=== PATIENT | female | born 1955 | race Caucasian/White ===

== ENCOUNTER 2016-08-28 06:17 | Inpatient (IN) ==
--- NOTE | 2016-08-21 10:31 | EKG Report ---
Test Performed on : 08/21/2016 10:27:13 AM Test Reason : pat Blood Pressure : / mmHG Vent. Rate : 060 BPM Atrial Rate : 060 BPM P-R Int : 112 ms QRS Dur : 088 ms QT Int : 390 ms P-R-T Axes : 042 -01 055 degrees QTc Int : 390 ms Normal sinus rhythm. Nonspecific ST abnormality Abnormal ECG When compared with ECG of 22-JUL-2009 08:24, No significant change was found Confirmed by Dwayne DAWSON, Tod Rand ([id number]) on 08/21/2016 6:26:23 PM
[2016-08-21 10:56] LABS: MANUAL DIFF NEEDED? NO; URINE MICRO REVIEW NEEDED? NO; URINE SOURCE CLEAN CATCH
[2016-08-21 10:59] LABS: BASO% 0.4 % (0.0-0.8); EOS# 0.18 X1000 (0.0-0.7); EOS% 2.6 % (0.0-10.0); HEMATOCRIT 41.5 % (37.0-47.0); HEMOGLOBIN 14.2 g/dL (12.0-16.0); LYMPH# 2.12 X1000 (1.2-3.4); LYMPH% 30.4 % (20.5-51.1); MCH 30.2 PG (27-31); MCHC 34.2 g/dL (33-37); MCV 88.3 FL (81-99); MONO# 0.83 X1000 (0.11-0.59); MONO% 11.9 % (1.7-9.3); MPV 12.2 FL (7.4-10.4); NEUT% 54.7 % (42.2-75.2); PLT 181 X1000 (130-400)
[2016-08-21 11:01] LABS: BILIRUBIN URINE NEGATIVE (NEGATIVE); BLOOD URINE NEGATIVE (NEGATIVE); COLOR YELLOW; GLUCOSE URINE NEGATIVE (NEGATIVE); LEUKOCYTES URINE LARGE (NEGATIVE); NITRITE URINE NEGATIVE (NEGATIVE); PH URINE 5.5; PROTEIN URINE NEGATIVE (NEGATIVE); SP GRAVITY URINE 1.006; TURBIDITY URINE HAZY (CLEAR); UROBILINOGEN URINE NORMAL (NORMAL)
[2016-08-21 11:02] LABS: UR EPITHELIAL CELLS >10 /HPF (<10); URINE BACTERIA 2+ /HPF; URINE RBC <10 /HPF (<10)
[2016-08-21 11:09] LABS: INR 0.95; PROTIME 9.9 Seconds (9.2-11.7); PTT 23.8 Seconds (22.0-36.0)
[2016-08-21 11:46] LABS: AGAP 12; BUN 12 mg/dL (8-22); CALCIUM 9.3 mg/dL (8.8-10.2); CHLORIDE 99 mmol/L (98-107); COSMO 279; POTASSIUM 4.3 mmol/L (3.5-5.1); SODIUM 140 mmol/L (136-145); TCO2 29 mmol/L (25-35)
[2016-08-28] MEDS ORDERED: LYRICA ONE (08:04)
[2016-08-28] MEDS ORDERED: PEPCID ONE (08:04)
[2016-08-28] MEDS ORDERED: COLACE ONE (08:04)
[2016-08-28] MEDS ORDERED: REGLAN ONE (08:04)
[2016-08-28] MEDS ORDERED: LR 1,000 ML ONE (08:05)
[2016-08-28] MEDS ORDERED: CELEBREX ONE (08:05)
[2016-08-28] MEDS ORDERED: KEFZOL 2 GM/D5W 2 GM/50 ML IVPB ONE (08:05)
[2016-08-28] MEDS ORDERED: MARCAINE 0.25% PF/EPI 1:200,000 ONE (08:39)
[2016-08-28] MEDS ORDERED: TORADOL ONE (08:39)
[2016-08-28] MEDS ORDERED: VANCOMYCIN ONE (08:39)
[2016-08-28] MEDS ORDERED: CYKLOKAPRON 1,000 MG/NS 1,000 MG/100 ML IVPB ONE ×2 (08:40→08:48)
[2016-08-28] MEDS ORDERED: EXPAREL 1.3% ONE (08:40)
[2016-08-28] MEDS ORDERED: SODIUM CHLORIDE 0.9% ONE (08:40)
[2016-08-28] MEDS ORDERED: NEOSPORIN G.U. IRRIGANT ONE (08:48)
[2016-08-28] MEDS ORDERED: LASIX PO SCH (09:00)
[2016-08-28] MEDS ORDERED: KLOR-CON PO SCH (09:00)
[2016-08-28] MEDS ORDERED: CENTRUM SILVER PO SCH (09:00)
[2016-08-28] MEDS ORDERED: VITAMIN B-12 PO SCH (09:00)
[2016-08-28] MEDS ORDERED: COLCRYS PO SCH (09:00)
[2016-08-28] MEDS ORDERED: FISH OIL CONCENTRATE PO SCH (09:00)
[2016-08-28] MEDS ORDERED: ESTRACE PO SCH (09:00)
[2016-08-28 10:09] LABS: URINE MICRO REVIEW NEEDED? NO; URINE SOURCE CATH
[2016-08-28 10:20] LABS: BILIRUBIN URINE NEGATIVE (NEGATIVE); BLOOD URINE NEGATIVE (NEGATIVE); COLOR YELLOW; GLUCOSE URINE NEGATIVE (NEGATIVE); LEUKOCYTES URINE NEGATIVE (NEGATIVE); NITRITE URINE NEGATIVE (NEGATIVE); PROTEIN URINE NEGATIVE (NEGATIVE); SP GRAVITY URINE 1.023; TURBIDITY URINE CLEAR (CLEAR); UROBILINOGEN URINE NORMAL (NORMAL)
[2016-08-28 10:21] LABS: UR EPITHELIAL CELLS <10 /HPF (<10); URINE BACTERIA NEGATIVE /HPF; URINE RBC <10 /HPF (<10); URINE WBC <10 /HPF (<10)
--- NOTE | 2016-08-28 11:17 | OPERATIVE NOTE ---
PROCEDURE DATE : 08/28/2016 PREOPERATIVE DIAGNOSIS: Degenerative joint disease, right knee. POSTOPERATIVE DIAGNOSIS: Degenerative joint disease, right knee. PROCEDURE PERFORMED: Right total knee replacement. SURGEON: Corbin Jerome MD FELLER SEAM OPERATOR: Sejal Mansfield ANESTHESIA: Spinal. COMPLICATIONS: None. DESCRIPTION OF PROCEDURE: This is a 60-year-old female who presents for right knee replacement. Risks, benefits and no guarantees were discussed, and she is willing to proceed. She was taken to the operating room, and satisfactory anesthesia was obtained. The right leg was prepped and draped in the usual sterile fashion. A time-out was taken to confirm operative site procedure and patient. The leg was wrapped with an Esmarch and tourniquet inflated to 350 mmHg. A midline incision was made over the front of the knee followed by a quad tendon sparing arthrotomy. The patella was everted and resurfaced with freehand technique. The patella was subluxed laterally, and the knee was flexed. An intramedullary hole was made in the distal femur, and the distal femoral cutting block was secured in 5 degrees of valgus. Femoral resection was made and the femur sized to a DePuy Attune size 5 femoral component. The 4-in-1 block was secured and the anterior, posterior and chamfer cuts sequentially made. A notch was provided using the provided notch guide for the posterior stabilized design. Any remaining osteophytes were debrided about the femur. The knee was then flexed and PCL retractor placed behind the tibia to protect the neurovascular bundle. The tibial cutting block was secured with extramedullary alignment willie and tibial resection made. Flexion-extension gaps were noted to be slightly tight in both areas, and an additional 2 mm was taken off the tibia with good flexion-extension space. The tibia was sized to a size 5 tibial baseplate. Trial reduction was performed with a 6 mm poly with good range of motion and stability. The patella was sized to a 35 medialized dome patella. This was drilled for the proper peg holes for the patellar implant and all bony surfaces thoroughly irrigated with pulsatile lavage. Cement was 1 g of vancomycin was utilized to cement a DePuy Attune size 5 tibial baseplate, a size 5 right posterior stabilized femoral component and then a 35 medialized dome patella. Excess cement was removed with a freer elevator. While the cement cured, the joint capsule was injected with Exparel for pain management and a Hemovac drain placed. A size 5, 6 mm thick rotating platform poly was then secured in the tibial tray and the knee reduced. Final range of motion was then assess with 0 to 120 degrees of motion and midline patellar tracking. The arthrotomy was copiously irrigated with irrigant and closed over the drain with #1 Vicryl in the arthrotomy, 2-0 Vicryl in the subcutaneous and skin kenyetta on the skin edges. Sterile dressings completed the closure, and the patient was recovered from anesthesia and transferred to the recovery room in stable condition. No intraoperative complications were noted. Instrument count and sponge count were correct at the time of closure. cc: Corbin Jerome MD
[2016-08-28] MEDS ORDERED: VERSED ONE (11:47)
[2016-08-28] MEDS ORDERED: DIPRIVAN 1% ONE (11:47)
[2016-08-28] MEDS ORDERED: FENTANYL ONE (11:47)
[2016-08-28] MEDS ORDERED: LR 2,000 ML ONE (11:57)
[2016-08-28] MEDS ORDERED: XYLOCAINE-MPF 2% ONE (11:57)
[2016-08-28] MEDS ORDERED: OFIRMEV 1000 MG/ISOTONIC SOLN 1,000 MG/100 ML BOTTLE ONE (11:57)
[2016-08-28] MEDS ORDERED: DECADRON ONE (11:57)
[2016-08-28] MEDS ORDERED: NS 1,000 ML ONE (12:27)
--- NOTE | 2016-08-28 12:36 | Diag Imaging Result Doc PS360 ---
EXAM: KNEE 1-2 VIEWS-RIGHT HISTORY: tka TECHNIQUE: AP and lateral portable at 1140 COMMENT: there has been total knee arthroplasty. There is no evidence of fracture or other acute bony abnormality. IMPRESSION: Postsurgical changes. Electronically signed by Yan German 08/28/2016 12:34 PM
--- NOTE | 2016-08-28 13:29 | PROGRESS NOTE ---
DATE: 08/28/2016 TIME: 1:13. SUBJECTIVE: Ms. Valera is seen for postop check of her total knee replacement. She is afebrile with stable vital signs. She is comfortable at the present time. The incisions are clean and dry. There is good range of motion of the toes and foot. There is good capillary refill. At the present time, she is stable with no immediate postop complications. cc: Corbin Jerome MD
[2016-08-28] MEDS: MORPHINE IV PRN (13:52)
[2016-08-28] MEDS: NS 1,000 ML IV SCH (13:53)
[2016-08-28] MEDS: KEFZOL 1 GM/D5W 1 GM/50 ML IVPB IV SCH (16:33)
[2016-08-28] MEDS: NORCO-10 PO PRN ×2 (16:33→21:57)
[2016-08-28] MEDS ORDERED: ZOCOR PO SCH (21:00)
[2016-08-28] MEDS: PERIDEX MT SCH (21:59)
[2016-08-28] MEDS: CALTRATE 600 + D PO SCH (22:01)
[2016-08-28] MEDS: COLACE PO SCH (22:01)
[2016-08-28] MEDS: FIBERCON PO SCH (22:02)
[2016-08-28] MEDS: VITAMIN D PO SCH (22:02)
[2016-08-29] MEDS: MORPHINE IV PRN
[2016-08-29] MEDS ORDERED: MORPHINE IV PRN (00:29)
[2016-08-29] MEDS: KEFZOL 1 GM/D5W 1 GM/50 ML IVPB IV SCH (00:53)
[2016-08-29] MEDS: NORCO-10 PO PRN ×3 (00:53→11:54)
[2016-08-29] MEDS: NS 1,000 ML IV SCH (00:54)
[2016-08-29 05:56] LABS: HEMOGLOBIN 12.2 g/dL (12.0-16.0)
[2016-08-29] MEDS ORDERED: XARELTO PO SCH (06:00)
[2016-08-29 06:13] LABS: AGAP 11; BUN 13 mg/dL (8-22); CALCIUM 9.9 mg/dL (8.8-10.2); CHLORIDE 100 mmol/L (98-107); COSMO 274; POTASSIUM 5.1 mmol/L (3.5-5.1); SODIUM 136 mmol/L (136-145); TCO2 25 mmol/L (25-35)
[2016-08-29] MEDS ORDERED: PRILOSEC PO SCH (07:00)
[2016-08-29] MEDS ORDERED: SYNTHROID PO SCH (07:00)
[2016-08-29 08:11] VITALS: BP 142/76
[2016-08-29] MEDS ORDERED: CELEBREX PO SCH (09:00)
--- NOTE | 2016-08-29 09:00 | DISCHARGE SUMMARY ---
ADMISSION DATE: 08/28/2016 DISCHARGE DATE: ADMITTING DIAGNOSES: Degenerative joint disease of the knee. ADDITIONAL DIAGNOSES: 1. Hypothyroidism. 2. Gout. 3. Reflux. 4. Hypercholesterolemia. DISCHARGE DIAGNOSES: 1. Degenerative joint disease of the knee. 2. Hypothyroidism. 3. Gout. 4. Reflux. 5. Hypercholesterolemia. HISTORY AND HOSPITAL COURSE: This 60-year-old female presents for a right knee replacement. She was admitted the hospital and underwent a right knee replacement under spinal anesthetic. Postoperatively, she mobilized full weightbearing and steadily progressed. She is discharged home the day after surgery for home therapy and outpatient followup. At the present time, she is afebrile with stable vital signs. The incision is clean and dry. She is to return to the office in 10-14 days for staple removal or sooner for any worsening signs or symptoms. DISCHARGE MEDICATIONS: Include her home medicines consisting of an aspirin a day, B12 supplementation, colchicine p.r.n., estradiol 2 mg daily, fish oil supplementation, Lasix 20 mg daily, levothyroxine 100 mcg daily, omeprazole 40 mg daily, potassium supplementation 10 mEq daily, simvastatin 40 mg daily, vitamin D supplementation, and multivitamins. She is also on Xarelto 10 mg daily for 2 weeks for DVT prophylaxis and [place] 10, 1-2 every 4-6 hours p.r.n. pain. cc: Corbin Jerome MD
[2016-08-29] MEDS: FIBERCON PO SCH (09:40)
[2016-08-29] MEDS: CALTRATE 600 + D PO SCH (09:41)
[2016-08-29] MEDS: COLACE PO SCH (09:41)
[2016-08-29] MEDS: VITAMIN D PO SCH (09:44)
[2016-08-29] MEDS: PERIDEX MT SCH (09:48)
[2016-08-29] MEDS ORDERED: PNEUMOVAX 23 IM ONE (12:15)
== END 2016-08-29 12:17 | disposition home health service (06) ==
LOC: SURHOLD 06:17 → 4N 13:07
PROVIDERS: ADMIT Orthopaedic Surgery Adult Reconstructive Orthopaedic Surgery; ATTEND Orthopaedic Surgery Adult Reconstructive Orthopaedic Surgery

== ENCOUNTER 2018-09-02 06:23 | Observation (INO) ==
--- NOTE | 2018-08-27 09:52 | EKG Report ---
Test Performed on : 08/27/2018 09:46:10 AM Test Reason : PAT Blood Pressure : / mmHG Vent. Rate : 065 BPM Atrial Rate : 065 BPM P-R Int : 120 ms QRS Dur : 090 ms QT Int : 394 ms P-R-T Axes : 032 000 078 degrees QTc Int : 409 ms Normal sinus rhythm. Normal ECG When compared with ECG of 05-FEB-2018 13:24, No significant change was found Confirmed by Abdon DAWSON, Milton Daniels ([id number]) on 08/28/2018 4:18:55 PM
[2018-08-27 10:07] LABS: URINE SOURCE CLEAN CATCH
[2018-08-27 10:11] LABS: BILIRUBIN URINE NEGATIVE (NEGATIVE); BLOOD URINE NEGATIVE (NEGATIVE); COLOR YELLOW; GLUCOSE URINE NEGATIVE (NEGATIVE); KETONE URINE NEGATIVE (NEGATIVE); LEUKOCYTES URINE LARGE (NEGATIVE); NITRITE URINE NEGATIVE (NEGATIVE); PH URINE 5.5; PROTEIN URINE NEGATIVE (NEGATIVE); SP GRAVITY URINE 1.009; TURBIDITY URINE CLEAR (CLEAR); UR EPITHELIAL CELLS <10 /HPF (<10); URINE BACTERIA 2+ /HPF; URINE RBC <10 /HPF (<10); URINE WBC 20-40 /HPF (<10); UROBILINOGEN URINE NORMAL (NORMAL)
[2018-08-27 10:13] LABS: BASO# 0.03 X1000 (0.0-0.2); BASO% 0.5 % (0.0-0.8); EOS# 0.21 X1000 (0.0-0.7); EOS% 3.8 % (0.0-10.0); HEMATOCRIT 43.2 % (37.0-47.0); HEMOGLOBIN 14.5 g/dL (12.0-16.0); LYMPH# 2.02 X1000 (1.2-3.4); LYMPH% 36.1 % (20.5-51.1); MCH 29.9 PG (27-31); MCHC 33.6 g/dL (33-37); MCV 89.1 FL (81-99); MONO# 0.58 X1000 (0.11-0.59); MONO% 10.4 % (1.7-9.3); MPV 12.5 FL (7.4-10.4); NEUT# 2.76 X1000 (1.4-6.5); NEUT% 49.2 % (42.2-75.2); PLT 158 X1000 (130-400); RBC 4.85 XMIL (4.2-5.4); RDW 13.3 % (11.5-14.5)
[2018-08-27 10:19] LABS: INR 0.89; PROTIME 12.8 Seconds (11.0-16.0); PTT 25.3 Seconds (22.3-41.8)
[2018-08-27 10:41] LABS: AGAP 10; BUN 14 mg/dL (8-22); CALCIUM 9.4 mg/dL (8.8-10.2); CHLORIDE 96 mmol/L (98-107); COSMO 278; CREATININE 0.8 mg/dL (0.5-0.9); ESTIMATED GFR > 60; GLUCOSE 196 mg/dL (70-104); POTASSIUM 3.9 mmol/L (3.5-5.1); SODIUM 136 mmol/L (136-145); TCO2 30 mmol/L (25-35)
[~2018-09-02 06:23] MED LIST: DIPRIVAN 1% ONE; FENTANYL ONE; VERSED ONE
[2018-09-02] MEDS ORDERED: LYRICA ONE (07:00)
[2018-09-02] MEDS ORDERED: PEPCID ONE (07:00)
[2018-09-02] MEDS ORDERED: COLACE ONE (07:00)
[2018-09-02] MEDS ORDERED: REGLAN ONE (07:00)
[2018-09-02] MEDS ORDERED: CELEBREX ONE (07:01)
[2018-09-02] MEDS ORDERED: KEFZOL 1 GM/D5W 2 GM/100 ML IVPB ONE (07:01)
[2018-09-02] MEDS ORDERED: LR 1,000 ML ONE (07:01)
[2018-09-02] MEDS ORDERED: TORADOL ONE (07:15)
[2018-09-02] MEDS ORDERED: DURAMORPH ONE (07:15)
[2018-09-02] MEDS ORDERED: MARCAINE 0.25% PF ONE (07:15)
[2018-09-02] MEDS ORDERED: VANCOMYCIN ONE (07:16)
[2018-09-02] MEDS ORDERED: EXPAREL 1.3% ONE (07:16)
[2018-09-02] MEDS ORDERED: CYKLOKAPRON 1,000 MG/NS 1,000 MG/100 ML IVPB ONE ×2 (07:16→07:18)
[2018-09-02] MEDS ORDERED: NEOSPORIN G.U. IRRIGANT ONE (07:16)
[2018-09-02] MEDS ORDERED: SODIUM CHLORIDE 0.9% ONE (07:16)
[2018-09-02] MEDS ORDERED: DECADRON ONE (08:56)
[2018-09-02] MEDS ORDERED: ZOFRAN ONE (08:56)
[2018-09-02] MEDS ORDERED: OFIRMEV 1000 MG/ISOTONIC SOLN 1,000 MG/100 ML BOTTLE ONE (08:56)
[2018-09-02 09:15] LABS: URINE SOURCE CATH
[2018-09-02 09:29] LABS: BILIRUBIN URINE NEGATIVE (NEGATIVE); BLOOD URINE NEGATIVE (NEGATIVE); COLOR YELLOW; GLUCOSE URINE NEGATIVE (NEGATIVE); KETONE URINE NEGATIVE (NEGATIVE); LEUKOCYTES URINE NEGATIVE (NEGATIVE); NITRITE URINE NEGATIVE (NEGATIVE); PROTEIN URINE NEGATIVE (NEGATIVE); SP GRAVITY URINE 1.016; TURBIDITY URINE CLEAR (CLEAR); UROBILINOGEN URINE NORMAL (NORMAL)
[2018-09-02 09:31] LABS: UR EPITHELIAL CELLS <10 /HPF (<10); URINE BACTERIA NEGATIVE /HPF; URINE RBC <10 /HPF (<10); URINE WBC <10 /HPF (<10)
[2018-09-02] MEDS: DILAUDID ONE ×3 (10:33→23:09)
[2018-09-02] MEDS ORDERED: NS 1,000 ML ONE (11:00)
--- NOTE | 2018-09-02 11:56 | Diag Imaging Result Doc PS360 ---
EXAM: KNEE 1-2 VIEWS-LEFT INDICATION: Left total knee TECHNIQUE: 2 views COMPARISON: None. FINDINGS: There has been a recent left knee arthroplasty. The arthroplasty hardware is in the expected position. There is no evidence of periprosthetic fracture. Anterior skin kenyetta and a drainage catheter are in place. IMPRESSION: Satisfactory postoperative knee. Electronically signed by Corbin Devine 09/02/2018 11:54 AM
[2018-09-02] MEDS ORDERED: ZOFRAN IV PRN (12:15)
[2018-09-02] MEDS ORDERED: MORPHINE IV PRN ×3 (12:15)
[2018-09-02] MEDS ORDERED: OXY IR PO PRN (12:15)
[2018-09-02] MEDS: OXY IR PO PRN ×2 (12:22→22:42)
[2018-09-02] MEDS: KEFZOL 2 GM/D5W 2 GM/50 ML IVPB IV SCH (17:35)
[2018-09-02] MEDS: PERIDEX MT SCH (20:24)
[2018-09-02] MEDS: COLACE PO SCH (20:25)
[2018-09-02] MEDS: ULTRAM PO SCH ×2 (20:25→23:09)
[2018-09-02] MEDS: TYLENOL PO SCH ×2 (20:25→23:09)
[2018-09-02] MEDS: OSCAL 500 + D PO SCH (20:33)
[2018-09-02] MEDS: VITAMIN D PO SCH (20:56)
[2018-09-02] MEDS: FIBERCON PO SCH (20:57)
[2018-09-02] MEDS ORDERED: ZOCOR PO SCH (21:00)
[2018-09-02] MEDS ORDERED: HYZAAR 50/12.5 MG PO SCH (21:00)
[2018-09-02] MEDS: NS 1,000 ML IV SCH (23:09)
[2018-09-03] MEDS: NS 1,000 ML IV SCH ×2 (00:24→02:14)
[2018-09-03] MEDS: KEFZOL 2 GM/D5W 2 GM/50 ML IVPB IV SCH (00:24)
[2018-09-03] MEDS: ULTRAM PO SCH ×2 (03:17→11:09)
[2018-09-03] MEDS: TYLENOL PO SCH ×2 (03:17→11:08)
[2018-09-03] MEDS: PRILOSEC PO SCH ×2 (05:19→06:08)
[2018-09-03 05:49] LABS: HEMATOCRIT 34.1 % (37.0-47.0); HEMOGLOBIN 11.3 g/dL (12.0-16.0)
[2018-09-03 06:29] LABS: CALCIUM 9.5 mg/dL (8.8-10.2); POTASSIUM 4.7 mmol/L (3.5-5.1)
[2018-09-03 07:49] VITALS: BP 115/67
[2018-09-03] MEDS: PERIDEX MT SCH (08:18)
[2018-09-03] MEDS: VITAMIN D PO SCH (08:18)
[2018-09-03] MEDS: OSCAL 500 + D PO SCH (08:20)
[2018-09-03] MEDS: COLACE PO SCH (08:20)
[2018-09-03] MEDS: FIBERCON PO SCH (08:20)
[2018-09-03] MEDS ORDERED: ASPIRIN PO SCH (09:00)
[2018-09-03] MEDS ORDERED: SYNTHROID PO SCH (09:00)
[2018-09-03] MEDS ORDERED: CELEBREX PO SCH (09:00)
[2018-09-03] MEDS ORDERED: CENTRUM SILVER PO SCH (09:00)
[2018-09-03] MEDS ORDERED: COLCRYS PO SCH (09:00)
[2018-09-03] MEDS ORDERED: KLOR-CON PO SCH (09:00)
[2018-09-03] MEDS ORDERED: FISH OIL CONCENTRATE PO SCH (09:00)
[2018-09-03] MEDS ORDERED: ZYRTEC PO SCH (09:00)
[2018-09-03] MEDS ORDERED: LASIX PO SCH (09:00)
[2018-09-03] MEDS ORDERED: FLONASE NAS SCH (09:00)
[2018-09-03] MEDS ORDERED: PEPCID PO SCH (09:00)
--- NOTE | 2018-09-04 18:42 | OPERATIVE NOTE ---
PROCEDURE DATE : 09/02/2018 PREOPERATIVE DIAGNOSIS: Degenerative joint disease, left knee. POSTOPERATIVE DIAGNOSIS: Degenerative joint disease, left knee. PROCEDURE PERFORMED: Left total knee replacement. SURGEON: Tamar Jerome MD. LITHOGRAPHIC PRESS OPERATOR: CLINTON Sosa. Mr. Frank was necessary for proper retraction and manipulation and exposure of the knee. ANESTHESIA: General. COMPLICATION: None. PROCEDURE IN DETAIL: This 62-year-old female presents for a left total knee replacement. Risks, benefits, and no guarantees were discussed, and she is willing to proceed. She was taken to the operating room and satisfactory anesthesia obtained. The left knee was prepped and draped in the usual sterile fashion. A time-out was taken to confirm operative site, procedure and patient. The leg was then wrapped with an Esmarch and tourniquet inflated to 350 mmHg. A midline incision was made over the front of the knee followed by a quad tendon sparing arthrotomy. The patella was everted and resurfaced with freehand technique and subluxed laterally. The knee was flexed and an intramedullary hole made in the distal femur and the distal femoral cutting block secured in 5 degrees of valgus. Distal femoral resection was made and the femur sized to a size 5 DePuy Attune implant. The 4-in-1 block was secured and the anterior, posterior and chamfer cuts sequentially made. A notch was created for posterior stabilized design and any remaining osteophytes were debrided off the femur. The knee was flexed in PCL with retractor placed behind the tibia to protect the neurovascular bundle. The tibial cutting block was secured and the tibial resection made with even flexion and extension gaps at roughly 6 mm. The tibia was sized to size 5 tibial tray. A trial reduction was performed with good range of motion and stability. The patella was sized to a 35 medialized patella. Drill holes were placed for the patella and femoral implants and the trial components removed. The bony surfaces were thoroughly irrigated with pulsatile lavage. Cement with a gram of vancomycin was then utilized to cement a DePuy Attune size 5 rotating platform tibial base plate, a size 5 regular left posterior stabilized femoral component, and a 35 medialized patella. While the cement cured, excess cement was removed with a Arbon elevator. The joint capsule was injected with Exparel and a Hemovac drain placed. After curing of the cement, a size 5 posterior stabilized polyethylene bearing 6 mm thick was placed in the tibial tray and the knee reduced. Final range of motion was assessed from 0 to 130 degrees with midline patellar tracking. The arthrotomy was copiously irrigated with irrigant and closed over the drain with #1 Vicryl in the arthrotomy, 2-0 Vicryl in the subcutaneous and skin kenyetta on the skin edges. Sterile dressings completed the closure, and the patient was recovered from anesthesia and transferred to the recovery room in stable condition. No intraoperative complications were noted. Instrument count and sponge count were correct at the time of closure. cc: Corbin Jerome MD
--- NOTE | 2018-09-05 10:37 | ORTHOPAEDICS PROGRESS NOTE ---
DATE: 09/02/2018 SUBJECTIVE DATA: Ms. Valera is seen on postop day 0 of her left total knee arthroplasty. She reports she is doing well at this time. She denies pain. OBJECTIVE DATA: There is good sensation in the left lower extremity. The bandages are clean and dry. There is negative Homans sign. Vital signs are stable. There is good pedal pulses. There is good capillary refill in the toes. ASSESSMENT: Degenerative joint disease left knee with total knee arthroplasty. PLAN: We plan on hopefully discharging Ms. Valera home in the morning. She has been doing well and cooperating with physical therapy. Will check back on her in the morning. Dictated by CLINTON Sosa for Corbin Jerome MD cc: CLINTON Sosa MD
== END 2018-09-03 11:58 | disposition home health service (06) ==
LOC: OPS 06:23 → 4N 06:23 → PAT 06:23
PROVIDERS: ADMIT Orthopaedic Surgery Adult Reconstructive Orthopaedic Surgery; ATTEND Orthopaedic Surgery Adult Reconstructive Orthopaedic Surgery
CPT/HCPCS: 73560; 80048; 81001; 85014; 85018; 85025; 85610; 85730; 86850; 86900; 86901; 88305; 88311; 93005; 93010; 94761; 94799; 97110; 97116; 97162; A9270; C9290; J0131; J0690; J1100; J1170; J1885; J2250; J2274; J2275; J2405; J3010; J3370; J7030; J7120; Q9974; S0020